=== PATIENT | female | born 1950 | race Asian ===

== ENCOUNTER 2017-01-15 13:51 | Emergency (ER) | payer OTHER ==
[~2017-01-15] VITALS: Ht 160 cm; Wt 81.0 kg
[2017-01-15] MEDS ORDERED: ONDANSETRON 2MG/ML, 2ML IVPush ONE (15:00)
[2017-01-15] MEDS ORDERED: SODIUM CHLORIDE FLUSH 10ML SYR IVF ONE (15:00)
[2017-01-15] MEDS ORDERED: MORPHINE SULFATE 4 MG/ML, 1ML IVPush PRN (15:00)
[2017-01-15] MEDS ORDERED: ONDANSETRON 2MG/ML, 2ML ONE (15:24)
[2017-01-15] MEDS ORDERED: morphine SULFATE 10 MG/ML, 1ML ONE (15:24)
[2017-01-15 15:25] LABS: HEMATOCRIT 42.5 % (34.6-47.8); HEMOGLOBIN 14.4 g/dL (11.7-16.4); WHITE BLOOD COUNT 9.6 x10^3/uL (3.4-10)
[2017-01-15 15:36] LABS: ASPARTATE AMINO TRANSFERASE 37 U/L (15-37); BLOOD UREA NITROGEN 30 mg/dL (7-18)
[2017-01-15 17:38] VITALS: BP 115/56
== END 2017-01-15 17:41 | disposition home or self-care (01) ==
LOC: ED 17:35
DX: N30.00 Acute cystitis without hematuria (principal); E11.9 Type 2 diabetes mellitus without complications; Z90.49 Acquired absence of other specified parts of digestive tract
CPT/HCPCS: 36415; 74020; 80053; 81001; 83605; 83690; 85025; 85610; 87086; 96374; 96375; 99285; J2405

== ENCOUNTER 2019-07-08 19:47 | Inpatient (IN) | payer MEDICARE ==
[~2019-07-08] VITALS: Ht 160 cm; Wt 83.7 kg
--- NOTE | 2019-07-08 20:17 | NUR ---
PT AMBULATED TO RESTROOM WITH STEADY GAIT TO PROVIDE URINE SAMPLE. UA COLLECTED AND SENT TO LAB.
[2019-07-08] MEDS ORDERED: ONDANSETRON 2MG/ML, 2ML ONE (20:18)
[2019-07-08] MEDS ORDERED: KETOROLAC 30 MG/1 ML ONE (20:18)
[2019-07-08] MEDS ORDERED: HYDROcodone/APAP 10/325 MG TABLET ONE (20:20)
[2019-07-08 20:26] LABS: CULTURE INDICATED? YES; MICROSCOPIC INDICATED
[2019-07-08] MEDS ORDERED: KETOROLAC 30 MG/1 ML IVPush ONE (20:30)
[2019-07-08] MEDS ORDERED: ONDANSETRON 2MG/ML, 2ML IVPush ONE (20:30)
--- NOTE | 2019-07-08 21:00 | NUR ---
PIV PLACED. 1 SET BLOOD CX DRAWN. MEDS ADMIN PER MAY. PT STATES PAIN FEELS A LOT BETTER AFTER RECEIVING PAIN MEDS. PT RESTING COMFORTABLY ON GURNEY. NADN.
--- NOTE | 2019-07-08 21:14 | NUR ---
LAB AT BEDSIDE FOR REMAINING LAB DRAWS.
[2019-07-08 21:38] LABS: BASOPHILS % (AUTO) 1 % (0-1); EOSINOPHILS # (AUTO) 0.17 x10^3/uL (0-0.4); EOSINOPHILS % (AUTO) 1 % (1-7); LYMPHOCYTES # (AUTO) 0.93 x10^3/uL (1-3.4); LYMPHOCYTES % (AUTO) 6 % (22-44); MD NO; MEAN CORPUSCULAR HGB CONC 33.7 g/dL (32.4-35.8); MEAN CORPUSCULAR VOLUME 88.9 fL (80-100); MEAN PLATELET VOLUME 8.2 fL (7.4-10.4); MONOCYTES # (AUTO) 0.82 x10^3/uL (0.2-0.8); MONOCYTES % (AUTO) 5 % (2-9); NEUTROPHILS % (AUTO) 87 % (42-75); PLATELET COUNT 231 x10^3/uL (130-400); RED CELL DISTRIBUTION WIDTH 13.6 % (9.6-15.2)
--- NOTE | 2019-07-08 21:48 | NUR ---
RECEIVED NEW ORDER FOR CT AT THIS TIME. PT UPDATED.
[2019-07-08 21:49] LABS: ALANINE AMINOTRANSFERASE 44 U/L (12-78); ALBUMIN 3.2 g/dL (3.4-5.0); ANION GAP 8 mmol/L (5-15); CALCIUM 9.3 mg/dL (8.5-10.1); CHLORIDE 99 mmol/L (98-107); CREATININE 1.47 mg/dL (0.55-1.02)
[2019-07-08 21:51] LABS: ALKALINE PHOSPHATASE 83 U/L (45-117); BILIRUBIN,TOTAL 0.7 mg/dL (0.2-1.0); TOTAL PROTEIN 7.9 g/dL (6.4-8.2)
[2019-07-08] MEDS ORDERED: INSU100I32 SC (21:54)
[2019-07-08] MEDS ORDERED: GABA300C10 PO (21:54)
[2019-07-08] MEDS ORDERED: METF500T27 PO (21:54)
[2019-07-08] MEDS ORDERED: INSU100I51 SC (21:54)
[2019-07-08] MEDS ORDERED: LEVO100T5 PO (21:54)
--- NOTE | 2019-07-08 21:55 | NUR ---
PT RESTING COMFORTABLY ON GURNEY. SARAHI.
[2019-07-08] MEDS ORDERED: SODIUM CHLORIDE 0.9% 1,000ML IVBOLUS ONE (22:00)
--- NOTE | 2019-07-08 22:20 | NUR ---
PT TAKEN TO CT.
--- NOTE | 2019-07-08 22:32 | NUR ---
PT BACK FROM CT
--- NOTE | 2019-07-08 22:55 | NUR ---
ALL RESULTS ARE BACK AT THIS TIME. CHART UP FOR RECHECK.
[2019-07-08] MEDS ORDERED: PIPERACILLIN/TAZO/PMX 3.375GM 50 ML ONE ×2 (23:05→23:54)
[2019-07-08] MEDS ORDERED: OMNIPAQUE 350 MG/ML, 100ML BOTTLE ONE (23:16)
--- NOTE | 2019-07-08 23:17 | NUR ---
IV ABX STARTED. 2 SETS BLOOD CULTURES COLLECTED PRIOR TO ABX ADMIN. PT RESTING COMFORTABLY ON GURNEY. [facility].
--- NOTE | 2019-07-08 23:20 | NUR ---
PT STATES SHE ATE TWO CHICKEN NUGGETS THAT SHE HAD IN HER PURSE. OTHER THAN THAT, PT LAST ATE ABOUT LUNCHTIME. PT AWARE NOT TO EAT OR DRINK ANYTHING ELSE UNTIL OKS IT.
[2019-07-08] MEDS ORDERED: PIPERACILLIN/TAZO/PMX 3.375GM 50 ML IV ONE (23:30)
--- NOTE | 2019-07-08 23:40 | NUR ---
PROVIDER AT BEDSIDE TO UPDATE PT ON POC.
--- NOTE | 2019-07-08 23:48 | NUR ---
REPORT GIVEN TO YULIET FIGUEROA.
--- NOTE | 2019-07-08 23:49 | NUR ---
Report received from YULIET Lindo. This RN to assume care.
[2019-07-09] MEDS ORDERED: VANCOMYCIN 1,600 MG in SODIUM CHLORIDE 0.9% 250 ML IV ONE (00:30)
--- NOTE | 2019-07-09 00:36 | NUR ---
Daina non-admin due to not being ready prior to getting patient bed.
--- NOTE | 2019-07-09 00:37 | NUR ---
Report given to YULIET Renee. Patient to be trasnferred to room 348.
[2019-07-09] MEDS ORDERED: DEXTROSE 50%, 50ML SYRINGE IVPush PRN (01:00)
[2019-07-09] MEDS ORDERED: DEXTROSE 4 GM TAB.CHEW PO PRN (01:00)
[2019-07-09] MEDS ORDERED: ONDANSETRON ODT 4 MG PO PRN (01:00)
[2019-07-09] MEDS ORDERED: ONDANSETRON 2MG/ML, 2ML IVPush PRN (01:00)
[2019-07-09] MEDS ORDERED: PHARMACY MAY ADJ FOR RENAL FX MC PRN (01:00)
[2019-07-09] MEDS ORDERED: BISACODYL 10 MG SUPP PR PRN (01:00)
[2019-07-09] MEDS ORDERED: LABETALOL 5MG/ML, 20ML IVPush PRN (01:00)
[2019-07-09] MEDS ORDERED: hydrALAzine 20 MG/ML, 1ML IVPush PRN (01:00)
[2019-07-09] MEDS ORDERED: VANCOMYCIN PER PHARMACY MC PRN ×2 (01:00)
[2019-07-09] MEDS ORDERED: DOCUSATE 100 MG CAPSULE PO PRN (01:00)
[2019-07-09] MEDS ORDERED: ACETAMINOPHEN 325 MG TABLET PO PRN ×2 (01:00→10:30)
[2019-07-09] MEDS ORDERED: POLYETHYLENE GLYCOL 17 GM PACKET PO PRN (01:00)
[2019-07-09] MEDS ORDERED: GLUCAGON 1 MG IM PRN (01:00)
--- NOTE | 2019-07-09 01:32 | NUR ---
THIS TECH TRANSPORTED PT
[2019-07-09] MEDS: SODIUM CHLORIDE 0.9% 1,000 ML IV SCH ×3 (01:33→17:22)
[2019-07-09 01:39] VITALS: BP 159/77
[2019-07-09] MEDS: VANCOMYCIN 1,600 MG in SODIUM CHLORIDE 0.9% 250 ML IV SCH (02:36)
[2019-07-09] MEDS: PIPERACILLIN/TAZO/PMX 3.375GM 50 ML IV SCH ×4 (05:21→23:11)
[2019-07-09] MEDS: LEVOTHYROXINE 100 MCG TABLET PO SCH (05:21)
[2019-07-09 05:45] LABS: BASOPHILS % (AUTO) 0 % (0-1); EOSINOPHILS # (AUTO) 0.19 x10^3/uL (0-0.4); EOSINOPHILS % (AUTO) 2 % (1-7); LYMPHOCYTES # (AUTO) 1.22 x10^3/uL (1-3.4); LYMPHOCYTES % (AUTO) 10 % (22-44); MD NO; MEAN CORPUSCULAR HEMOGLOBIN 30.2 pg (27.0-34.8); MEAN CORPUSCULAR HGB CONC 33.6 g/dL (32.4-35.8); MEAN CORPUSCULAR VOLUME 89.8 fL (80-100); MEAN PLATELET VOLUME 8.2 fL (7.4-10.4); MONOCYTES # (AUTO) 0.77 x10^3/uL (0.2-0.8); MONOCYTES % (AUTO) 6 % (2-9); NEUTROPHILS # (AUTO) 10.56 x10^3/uL (1.8-6.8); NEUTROPHILS % (AUTO) 83 % (42-75); PLATELET COUNT 216 x10^3/uL (130-400); RED BLOOD COUNT 3.93 x10^6/uL (3.82-5.3); RED CELL DISTRIBUTION WIDTH 13.2 % (9.6-15.2)
[2019-07-09 05:48] LABS: ANION GAP 5 mmol/L (5-15); CALCIUM 8.3 mg/dL (8.5-10.1); CHLORIDE 104 mmol/L (98-107); CREATININE 1.38 mg/dL (0.55-1.02)
[2019-07-09] MEDS: morphine SULFATE 10 MG/ML, 1ML IVPush PRN ×2 (06:42→16:09)
[2019-07-09 06:59] VITALS: BP 126/71
[2019-07-09] MEDS: INSULIN LISPRO 100 UNITS/ML, PEN SQ-INSULIN SCH ×4 (07:00→20:52)
[2019-07-09] MEDS: SODIUM CHLORIDE FLUSH 10ML SYR IVF SCH ×2 (08:00→20:51)
[2019-07-09] MEDS ORDERED: CHLORHEXIDINE 15 ML UDC ONE (08:05)
[2019-07-09] MEDS ORDERED: BUPIVACAINE/PF-EPI 0.5% 1:200K ONE (08:05)
[2019-07-09] MEDS ORDERED: FENTANYL PF 250 MCG/5ML ONE (08:06)
[2019-07-09] MEDS ORDERED: MIDAZOLAM 1 MG/ML, 2ML ONE (08:06)
[2019-07-09] MEDS ORDERED: EPHEDRINE 50 MG/ML, 1ML ONE (09:42)
[2019-07-09] MEDS ORDERED: ONDANSETRON 2MG/ML, 2ML ONE (10:21)
[2019-07-09] MEDS ORDERED: ROCURONIUM 10MG/ML,5ML ONE (10:21)
[2019-07-09] MEDS ORDERED: PROPOFOL 10 MG/ML, 20ML ONE (10:21)
[2019-07-09] MEDS ORDERED: CEFAZOLIN 1,000 MG ONE (10:21)
[2019-07-09] MEDS ORDERED: SUCCINYLCHOLINE 20 MG/ML, 10ML ONE (10:21)
[2019-07-09] MEDS ORDERED: GLYCOPYRROLATE 0.2MG/1ML, 5ML ONE (10:21)
[2019-07-09] MEDS ORDERED: DEXAMETHASONE 4 MG/ML, 1ML ONE (10:21)
[2019-07-09] MEDS ORDERED: SUGAMMADEX 200 MG/2 ML IVPush ONE ×2 (10:21)
[2019-07-09] MEDS ORDERED: NEOSTIGMINE 1 MG/ML, 10ML ONE (10:21)
[2019-07-09] MEDS ORDERED: PROMETHAZINE 12.5 MG SUPP PR PRN (10:30)
[2019-07-09] MEDS ORDERED: FENTANYL PF 100 MCG/2ML IV PRN (10:30)
[2019-07-09] MEDS ORDERED: ONDANSETRON ODT 8 MG PO PRN (10:30)
[2019-07-09] MEDS ORDERED: PROMETHAZINE 25 MG SUPP PR PRN (10:30)
[2019-07-09] MEDS ORDERED: HYDROmorphone 2 MG/ML, 1ML IVPush PRN (10:30)
[2019-07-09] MEDS ORDERED: PROMETHAZINE 25 MG/ML, 1ML IV PRN (10:30)
[2019-07-09] MEDS ORDERED: ONDANSETRON 2MG/ML, 2ML IV PRN (10:30)
[2019-07-09] MEDS ORDERED: OXYcodone 5 MG/5 ML ORAL.SOL UDC PO PRN (10:30)
[2019-07-09] MEDS ORDERED: OXYcodone 5 MG/5 ML ORAL.SOL UDC ONE (11:02)
[2019-07-09] MEDS ORDERED: FENTANYL PF 100 MCG/2ML ONE (11:17)
[2019-07-09 13:30] VITALS: BP 147/71
[2019-07-09 19:15] VITALS: BP 134/69
[2019-07-09] MEDS: HYDROcodone/APAP 5/325 TABLET PO PRN ×2 (19:52→23:46)
[2019-07-10 00:29] VITALS: BP 117/65
[2019-07-10] MEDS: SODIUM CHLORIDE 0.9% 1,000 ML IV SCH ×4 (02:30→23:23)
[2019-07-10] MEDS: VANCOMYCIN 1,600 MG in SODIUM CHLORIDE 0.9% 250 ML IV SCH (02:30)
[2019-07-10] MEDS: morphine SULFATE 10 MG/ML, 1ML IVPush PRN (02:54)
[2019-07-10 03:40] VITALS: BP 134/63
[2019-07-10 06:26] LABS: BASOPHILS # (AUTO) 0.03 x10^3/uL (0-0.1); BASOPHILS % (AUTO) 0 % (0-1); EOSINOPHILS # (AUTO) 0.15 x10^3/uL (0-0.4); EOSINOPHILS % (AUTO) 2 % (1-7); LYMPHOCYTES # (AUTO) 1.04 x10^3/uL (1-3.4); LYMPHOCYTES % (AUTO) 14 % (22-44); MD NO; MEAN CORPUSCULAR HEMOGLOBIN 29.9 pg (27.0-34.8); MEAN CORPUSCULAR HGB CONC 33.2 g/dL (32.4-35.8); MEAN CORPUSCULAR VOLUME 90.1 fL (80-100); MEAN PLATELET VOLUME 7.6 fL (7.4-10.4); MONOCYTES # (AUTO) 0.57 x10^3/uL (0.2-0.8); MONOCYTES % (AUTO) 8 % (2-9); NEUTROPHILS # (AUTO) 5.76 x10^3/uL (1.8-6.8); NEUTROPHILS % (AUTO) 76 % (42-75); PLATELET COUNT 215 x10^3/uL (130-400); RED BLOOD COUNT 3.87 x10^6/uL (3.82-5.3); RED CELL DISTRIBUTION WIDTH 13.7 % (9.6-15.2)
[2019-07-10 06:34] LABS: ANION GAP 7 mmol/L (5-15); CHLORIDE 106 mmol/L (98-107); CREATININE 1.33 mg/dL (0.55-1.02)
[2019-07-10] MEDS: PIPERACILLIN/TAZO/PMX 3.375GM 50 ML IV SCH ×3 (06:36→18:13)
[2019-07-10] MEDS: LEVOTHYROXINE 100 MCG TABLET PO SCH (06:36)
[2019-07-10 06:44] VITALS: BP 104/57
[2019-07-10] MEDS: SODIUM CHLORIDE FLUSH 10ML SYR IVF SCH ×2 (07:39→20:40)
[2019-07-10] MEDS: INSULIN LISPRO 100 UNITS/ML, PEN SQ-INSULIN SCH ×4 (07:42→20:41)
[2019-07-10] MEDS: INSULIN GLARGINE 100 UNITS/ML, PEN SQ-INSULIN SCH ×2 (10:09→20:41)
[2019-07-10] MEDS: HYDROcodone/APAP 5/325 TABLET PO PRN ×3 (10:26→20:41)
[2019-07-10 13:55] VITALS: BP 131/69
[2019-07-10 19:59] VITALS: BP 123/70
[2019-07-10] MEDS ORDERED: VANCOMYCIN 1,600 MG in SODIUM CHLORIDE 0.9% 250 ML IV SCH (20:00)
[2019-07-11] MEDS: PIPERACILLIN/TAZO/PMX 3.375GM 50 ML IV SCH ×4 (00:28→19:01)
[2019-07-11 01:44] VITALS: BP 133/62
[2019-07-11 04:33] LABS: BASOPHILS # (AUTO) 0.03 x10^3/uL (0-0.1); BASOPHILS % (AUTO) 0 % (0-1); EOSINOPHILS # (AUTO) 0.61 x10^3/uL (0-0.4); EOSINOPHILS % (AUTO) 8 % (1-7); LYMPHOCYTES # (AUTO) 1.25 x10^3/uL (1-3.4); LYMPHOCYTES % (AUTO) 17 % (22-44); MD NO; MEAN CORPUSCULAR HGB CONC 33.2 g/dL (32.4-35.8); MEAN CORPUSCULAR VOLUME 90.3 fL (80-100); MEAN PLATELET VOLUME 7.5 fL (7.4-10.4); MONOCYTES # (AUTO) 0.56 x10^3/uL (0.2-0.8); MONOCYTES % (AUTO) 8 % (2-9); NEUTROPHILS # (AUTO) 5.03 x10^3/uL (1.8-6.8); NEUTROPHILS % (AUTO) 67 % (42-75); PLATELET COUNT 225 x10^3/uL (130-400); RED CELL DISTRIBUTION WIDTH 13.9 % (9.6-15.2)
[2019-07-11 04:41] LABS: ANION GAP 6 mmol/L (5-15); CALCIUM 7.6 mg/dL (8.5-10.1); CHLORIDE 112 mmol/L (98-107); CREATININE 1.44 mg/dL (0.55-1.02)
[2019-07-11] MEDS: SODIUM CHLORIDE 0.9% 1,000 ML IV SCH (06:16)
[2019-07-11] MEDS: LEVOTHYROXINE 100 MCG TABLET PO SCH (06:16)
[2019-07-11 06:54] VITALS: BP 128/66
[2019-07-11] MEDS: INSULIN LISPRO 100 UNITS/ML, PEN SQ-INSULIN SCH ×4 (07:00→20:36)
[2019-07-11] MEDS: INSULIN GLARGINE 100 UNITS/ML, PEN SQ-INSULIN SCH ×2 (08:02→20:42)
[2019-07-11] MEDS: HYDROcodone/APAP 5/325 TABLET PO PRN (08:03)
[2019-07-11] MEDS: SODIUM CHLORIDE FLUSH 10ML SYR IVF SCH ×2 (08:03→20:35)
[2019-07-11] MEDS: morphine SULFATE 10 MG/ML, 1ML IVPush PRN (13:41)
[2019-07-11 14:41] VITALS: BP 112/62
[2019-07-11 18:53] VITALS: BP 128/64
[2019-07-12] MEDS: PIPERACILLIN/TAZO/PMX 3.375GM 50 ML IV SCH ×4 (00:34→18:40)
[2019-07-12 03:20] VITALS: BP 163/82
[2019-07-12] MEDS: LEVOTHYROXINE 100 MCG TABLET PO SCH (06:21)
[2019-07-12 06:47] VITALS: BP 164/76
[2019-07-12] MEDS: INSULIN LISPRO 100 UNITS/ML, PEN SQ-INSULIN SCH ×4 (07:00→20:30)
[2019-07-12] MEDS: INSULIN GLARGINE 100 UNITS/ML, PEN SQ-INSULIN SCH (09:30)
[2019-07-12] MEDS: SODIUM CHLORIDE FLUSH 10ML SYR IVF SCH ×2 (09:30→20:29)
[2019-07-12] MEDS ORDERED: FUROSEMIDE 40 MG/4 ML IV ONE (10:30)
[2019-07-12] MEDS ORDERED: POTASSIUM CHLORIDE 20 MEQ TAB.ER.PRT PO ONE (10:30)
[2019-07-12 12:40] VITALS: BP 154/67
[2019-07-12 19:15] VITALS: BP 122/72
[2019-07-12] MEDS ORDERED: INSULIN GLARGINE 100 UNITS/ML, PEN SQ-INSULIN SCH (21:00)
[2019-07-13] MEDS: PIPERACILLIN/TAZO/PMX 3.375GM 50 ML IV SCH ×3 (01:15→12:19)
[2019-07-13 02:10] VITALS: BP 148/65
[2019-07-13 05:33] LABS: ANION GAP 5 mmol/L (5-15); CALCIUM 8.4 mg/dL (8.5-10.1); CHLORIDE 105 mmol/L (98-107); CREATININE 1.15 mg/dL (0.55-1.02)
[2019-07-13 05:44] LABS: BASOPHILS % (AUTO) 0 % (0-1); EOSINOPHILS % (AUTO) 8 % (1-7); LYMPHOCYTES # (AUTO) 1.14 x10^3/uL (1-3.4); LYMPHOCYTES % (AUTO) 14 % (22-44); MD NO; MEAN CORPUSCULAR HEMOGLOBIN 30.3 pg (27.0-34.8); MEAN CORPUSCULAR HGB CONC 33.5 g/dL (32.4-35.8); MEAN CORPUSCULAR VOLUME 90.4 fL (80-100); MEAN PLATELET VOLUME 6.8 fL (7.4-10.4); MONOCYTES # (AUTO) 0.22 x10^3/uL (0.2-0.8); MONOCYTES % (AUTO) 3 % (2-9); NEUTROPHILS # (AUTO) 6.02 x10^3/uL (1.8-6.8); NEUTROPHILS % (AUTO) 75 % (42-75); PLATELET COUNT 289 x10^3/uL (130-400); RED BLOOD COUNT 3.68 x10^6/uL (3.82-5.3); RED CELL DISTRIBUTION WIDTH 13.3 % (9.6-15.2)
[2019-07-13] MEDS: LEVOTHYROXINE 100 MCG TABLET PO SCH (06:10)
[2019-07-13 07:00] VITALS: BP 146/86
[2019-07-13] MEDS: INSULIN LISPRO 100 UNITS/ML, PEN SQ-INSULIN SCH ×3 (07:00→16:34)
[2019-07-13] MEDS ORDERED: INSULIN GLARGINE 100 UNITS/ML, PEN SQ-INSULIN SCH (09:00)
[2019-07-13] MEDS: SODIUM CHLORIDE FLUSH 10ML SYR IVF SCH (09:09)
[2019-07-13] MEDS ORDERED: PIPE3.373 IV (13:15)
[2019-07-13 14:43] VITALS: BP 158/69
== END 2019-07-13 17:54 | DRG 853 ==
LOC: ED 20:42 → EDIP 23:54 → 3N 07-09 01:30
PROVIDERS: ADMIT Internal Medicine; ATTEND Internal Medicine
PROC: 0DTJ4ZZ Resection of Appendix, Percutaneous Endoscopic Approach (ICD-10-PCS; principal; 2019-07-09 09:15)
DX: A41.9 Sepsis, unspecified organism (principal); K35.33 Acute appendicitis with perforation, localized peritonitis, and gangrene, with abscess; N17.0 Acute kidney failure with tubular necrosis; I50.31 Acute diastolic (congestive) heart failure; E87.1 Hypo-osmolality and hyponatremia; Z66 Do not resuscitate; N73.9 Female pelvic inflammatory disease, unspecified; E03.9 Hypothyroidism, unspecified; E11.65 Type 2 diabetes mellitus with hyperglycemia; E66.9 Obesity, unspecified; R65.20 Severe sepsis without septic shock; Z79.4 Long term (current) use of insulin; Z80.3 Family history of malignant neoplasm of breast; Z83.3 Family history of diabetes mellitus; Z87.440 Personal history of urinary (tract) infections; Z87.891 Personal history of nicotine dependence; Z68.32 Body mass index [BMI] 32.0-32.9, adult
CPT/HCPCS: 36415; 71045; 74177; 76856; 80048; 80053; 81001; 82962; 83036; 83605; 83690; 83880; 84145; 85025; 87040; 87086; 88304; 93306; 93356; 96374; 96375; C1729; G0378; J0690; J1100; J1885; J1940; J2250; J2405; J2543; J2704; J2710; J3010; J3370; Q9967; J0330; J1815; J2270; J7030; J7050

== ENCOUNTER → 2019-07-22 | Outpatient (CLI) | payer MEDICARE ==
[~2019-07-22] MED LIST: GABA300C10 PO; INSU100I32 SC; INSU100I51 SC; LEVO100T5 PO; METF500T27 PO; PIPE3.373 IV
== END | disposition home or self-care (01) ==
LOC: CFH 12:15
PROVIDERS: ATTEND Family Medicine
DX: Z09 Encounter for follow-up examination after completed treatment for conditions other than malignant neoplasm (principal); K76.0 Fatty (change of) liver, not elsewhere classified; K44.9 Diaphragmatic hernia without obstruction or gangrene; I70.0 Atherosclerosis of aorta
CPT/HCPCS: 74176